=== PATIENT | male | born 1945 | race Caucasian/White ===

== ENCOUNTER 2018-10-25 06:43 | Emergency (ER) | payer OTHER ==
[~2018-10-25] VITALS: Ht 180.3 cm; Wt 95.3 kg
[2018-10-25 06:47] VITALS: Ht 180.3 cm; Wt 95.3 kg
[2018-10-25 07:24] LABS: CALCIUM 9.1 mg/dL (8.5-10.1); CARBON DIOXIDE 29.4 mmol/L (21-32); CHLORIDE SERUM 105 mmol/L (98-107); CREATININE SERUM 1.4 mg/dL (0.7-1.3); GLUCOSE SERUM 144 mg/dL (74-106); POTASSIUM SERUM 4.1 mmol/L (3.5-5.1); SODIUM SERUM 143 mmol/L (136-145)
[2018-10-25 07:25] LABS: BASOPHIL % 0.3 % (0-2); PLATELET COUNT 192 x10^3mcL (130-400)
[2018-10-25 07:28] LABS: ALKALINE PHOSPHATASE 81 U/L (46-116); ALT/SGPT 35 U/L (16-63); AST/SGOT 19 U/L (15-37); BILIRUBIN TOTAL 0.2 mg/dL (0.20-1.00); TOTAL PROTEIN, SERUM 7.2 g/dL (6.4-8.2)
[2018-10-25 07:29] LABS: ALBUMIN 3.2 g/dL (3.4-5.0)
[2018-10-25] MEDS ORDERED: CORE25 PO (07:33)
[2018-10-25] MEDS ORDERED: ZESTRIL5 MG PO (07:34)
[2018-10-25] MEDS ORDERED: BAYER ASPIRIN R81 MG PO (07:34)
[2018-10-25] MEDS ORDERED: LIPI10 PO (07:34)
[2018-10-25] MEDS ORDERED: MONTELUKAST SOD10 M1 PO (07:34)
[2018-10-25] MEDS ORDERED: ARICEPT10 MG PO (07:35)
[2018-10-25] MEDS ORDERED: VASCEPA1 GM PO (07:35)
[2018-10-25] MEDS ORDERED: AMBIEN10 MG PO (07:35)
[2018-10-25] MEDS ORDERED: D3-50001 TAB PO (07:35)
[2018-10-25] MEDS ORDERED: FENOFIBRATE145 M1 PO (07:35)
[2018-10-25] MEDS ORDERED: LEVOTHYROXINE0.1 M2 PO (07:36)
[2018-10-25] MEDS ORDERED: FLONS NS (07:37)
[2018-10-25] MEDS ORDERED: VENTOLIN H0.09 MG/A1 INH (07:38)
[2018-10-25] MEDS ORDERED: KLOR-CON M1010 MEQ PO (07:38)
[2018-10-25] MEDS ORDERED: LASIX20 MG PO (07:38)
[2018-10-25] MEDS ORDERED: IMITREX100 MG PO (07:39)
[2018-10-25 09:18] VITALS: BP 111/73
== END 2018-10-25 09:18 | disposition short-term general hospital (02) ==
LOC: ED 06:43
PROVIDERS: Emergency Medicine
DX: I71.01 Dissection of thoracic aorta (principal)
CPT/HCPCS: J2270; J3010; J3490; J7030; Q0092; Q9967

== ENCOUNTER 2019-02-04 19:26 | Emergency (ER) | payer OTHER ==
[~2019-02-04] VITALS: Ht 180.3 cm; Wt 99.8 kg
[~2019-02-04 19:26] MED LIST: AMBIEN10 MG PO; ARICEPT10 MG PO; BAYER ASPIRIN R81 MG PO; CORE25 PO; D3-50001 TAB PO; FENOFIBRATE145 M1 PO; FLONS NS; IMITREX100 MG PO; KLOR-CON M1010 MEQ PO; LASIX20 MG PO; LEVOTHYROXINE0.1 M2 PO; LIPI10 PO; MONTELUKAST SOD10 M1 PO; VASCEPA1 GM PO; VENTOLIN H0.09 MG/A1 INH; ZESTRIL5 MG PO
[2019-02-04 19:38] VITALS: Ht 180.3 cm; Wt 99.8 kg
[2019-02-04 20:04] LABS: BASOPHIL % 0.2 % (0-2); PLATELET COUNT 333 x10^3mcL (130-400)
[2019-02-04 20:14] LABS: CALCIUM 9.2 mg/dL (8.5-10.1); CARBON DIOXIDE 23.6 mmol/L (21-32); CHLORIDE SERUM 105 mmol/L (98-107); GLUCOSE SERUM 135 mg/dL (74-106); POTASSIUM SERUM 3.8 mmol/L (3.5-5.1); SODIUM SERUM 140 mmol/L (136-145)
[2019-02-04 20:18] LABS: ALBUMIN 3.2 g/dL (3.4-5.0); ALKALINE PHOSPHATASE 81 U/L (46-116); ALT/SGPT 20 U/L (16-63); AST/SGOT 17 U/L (15-37); BILIRUBIN TOTAL 0.19 mg/dL (0.20-1.00); TOTAL PROTEIN, SERUM 7.9 g/dL (6.4-8.2)
[2019-02-05 01:23] VITALS: BP 131/73
== END 2019-02-05 01:00 | disposition short-term general hospital (02) ==
LOC: ED 19:26
PROVIDERS: Emergency Medicine
DX: I71.01 Dissection of thoracic aorta (principal); I71.02 Dissection of abdominal aorta; I11.0 Hypertensive heart disease with heart failure; I50.9 Heart failure, unspecified; Z90.49 Acquired absence of other specified parts of digestive tract; Z98.890 Other specified postprocedural states
CPT/HCPCS: 83880; J2270; J2405; J3010; J7030; Q0092; Q9967

== ENCOUNTER 2020-11-29 14:19 | Emergency (ER) | payer OTHER ==
[~2020-11-29] VITALS: Ht 180.3 cm; Wt 117.0 kg
[2020-11-29 14:35] VITALS: Ht 180.3 cm; Wt 117.0 kg
[2020-11-29 16:20] VITALS: BP 121/67
== END 2020-11-29 16:20 | disposition home or self-care (01) ==
LOC: ED 14:19
DX: Z46.89 Encounter for fitting and adjustment of other specified devices (principal); I10 Essential (primary) hypertension; E78.5 Hyperlipidemia, unspecified